=== PATIENT | male | born 1995 | race Hispanic/Latino ===

== ENCOUNTER 2020-11-20 10:44 | Emergency (ER) | payer SELFPAY ==
[2020-11-20] MEDS ORDERED: ACETAMINOPHEN EXTRA STRENGTH 500 MG TABLET ONE (11:02)
== END 2020-11-20 12:34 | disposition home or self-care (01) ==
LOC: EDH 10:44
DX: S43.52XA Sprain of left acromioclavicular joint, initial encounter (principal); X58.XXXA Exposure to other specified factors, initial encounter; Y93.89 Activity, other specified; Y92.89 Other specified places as the place of occurrence of the external cause; Y99.8 Other external cause status
CPT/HCPCS: 29105; 71045; 73030

== ENCOUNTER 2021-07-05 07:43 | Emergency (ER) | payer OTHER ==
[~2021-07-05] VITALS: Ht 177.8 cm; Wt 79.4 kg
[2021-07-05 07:48] VITALS: BP 117/77
== END 2021-07-05 14:25 | disposition home or self-care (01) ==
LOC: EDH 07:43
DX: R51.9 Headache, unspecified (principal); Z53.21 Procedure and treatment not carried out due to patient leaving prior to being seen by health care provider

== ENCOUNTER 2021-09-03 03:04 | Emergency (ER) | payer OTHER ==
[~2021-09-03] VITALS: Ht 177.8 cm; Wt 77.1 kg
[2021-09-03 03:05] VITALS: BP 148/86
[2021-09-03] MEDS ORDERED: LIDOCAINE HCL 1% 20 ML VIAL ONE (03:13)
[2021-09-03] MEDS ORDERED: TETANUS/DIPHTHERIA TOXOID [ADULT] 0.5 ML VIAL IM ONE ×2 (04:10→04:30)
[2021-09-03] MEDS ORDERED: CEFAZOLIN SODIUM 1 GM VIAL IM ONE (04:30)
[2021-09-03] MEDS ORDERED: CEPH500B PO (06:09)
[2021-09-03] MEDS ORDERED: IBUP-2070 PO (06:09)
== END 2021-09-03 06:35 | disposition home or self-care (01) ==
LOC: EDH 03:04
DX: S01.01XA Laceration without foreign body of scalp, initial encounter (principal); S01.112A Laceration without foreign body of left eyelid and periocular area, initial encounter; S50.02XA Contusion of left elbow, initial encounter; S30.810A Abrasion of lower back and pelvis, initial encounter; S40.812A Abrasion of left upper arm, initial encounter; S40.811A Abrasion of right upper arm, initial encounter; R04.0 Epistaxis; X58.XXXA Exposure to other specified factors, initial encounter; Y93.89 Activity, other specified; Y92.89 Other specified places as the place of occurrence of the external cause; Y99.8 Other external cause status
CPT/HCPCS: 12001; 12011; 73080; 90471; 90714; 96372; 99284; J0690